=== PATIENT | female | born 1980 | race Caucasian/White ===

== ENCOUNTER 2018-03-11 15:39 | Emergency (ER) | payer BC, OTHER ==
[2018-03-11 17:04] LABS: URINE PH (Dip) POC 5.5 (5.0-8.5)
[2018-03-11 17:04] LABS: URINE BLOOD (Dip) POC Negative (NEGATIVE); URINE GLUCOSE (Dip) POC Negative (NEGATIVE); URINE KETONES (Dip) POC Trace (NEGATIVE); URINE LEUKOCYTE EST (Dip) POC Negative (NEGATIVE); URINE NITRITE (Dip) POC Negative (NEGATIVE); URINE TOTAL PROTEIN POC Trace (NEGATIVE)
[2018-03-11] MEDS: KETOROLAC 30 MG INJ IM (17:11)
[2018-03-11] MEDS: DIAZEPAM 2 MG TAB PO (17:42)
== END 2018-03-11 18:35 | disposition home or self-care (01) ==
LOC: FTE 15:39
DX: M54.5 Low back pain (principal)
CPT/HCPCS: 72100; 81003; 81025; 96372; 99284-25